=== PATIENT | male | born 1970 | race Caucasian/White ===

== ENCOUNTER 2018-01-26 11:34 | Emergency (ER) | payer OTHER, SELFPAY ==
[2018-01-26 11:35] VITALS: BP 132/75; PULSE 88; RESP 16; TEMP 36.6; O2SAT 98; BMI 29.0
--- NOTE | 2018-01-26 12:08 | CT_ITS ---
STUDY: CT ABDOMEN AND PELVIS WITH CONTRAST REASON FOR EXAM: Male, 47 years old. One-week history of right lower quadrant pain and diarrhea. RADIATION DOSAGE (If Supplied By Facility): CTDIvol = ( 13.29 ) mGy, DLP = ( 830.98 ) mGycm TECHNIQUE: Transaxial images were obtained from the dome of the diaphragm to the symphysis pubis with oral contrast. 100 ml of Isovue 300 contrast was administered. Sagittal and coronal images were reconstructed. Individualized dose optimization techniques were used for this CT. COMPARISON: None. FINDINGS: Minimal degree of increased linear markings at the lung bases suggestive of a linear atelectasis. The visualized portions of the heart are within normal limits. Normal liver. Normal gallbladder and extrahepatic biliary system. Normal spleen. Normal pancreas. Normal bilateral adrenal glands. Normal right kidney. Normal left kidney. Normal visualized stomach. There is thickening of the terminal ileum with increased markings in the surrounding peritoneal fat. Mural thickening of the right hemicolon as well as the transverse colon. This is suggestive of a inflammatory bowel disease such as Crohn's. Mild degree of the thickening of the descending colon. Several small well-defined soft tissue nodules are seen in the mesentery in the right lower quadrant suggestive of mesenteric adenitis. The appendix is unremarkable. Normal abdominal aorta. Normal inferior vena cava. Normal retroperitoneum. Normal urinary bladder. Normal abdominal wall. Normal osseous structures. CT/Abdomen/Pelvis WITH Contrast IMPRESSION: Findings in keeping with the pancolitis worse in the right hemicolon as well as thickening of the terminal ileum. Crohn's disease should be ruled out. Electronically Signed: Bakari Yost MD at 15:19 EDT Tel [phone], Service support ,
[2018-01-26 12:21] LABS: Bacteria 0 SEEN /hpf (None Seen); Red Blood Cells-Urine 0 SEEN /hpf (0-5); Squamous Epithelial Cells - UA 0 SEEN /hpf (0-5); White Blood Cells 0 SEEN /hpf (0-5)
[2018-01-26 12:33] LABS: Absolute Lymphocyte Count 1.92 X10^3/ul (0.83-4.51); Absolute Neutrophil Count 3.1 X10^3/uL (2.0-7.7); Basophil# 0.04 X10^3/uL; Basophil% 0.7 % (0-1); Differential Indicated SCAN CRITERIA MET; Eosinophil# 0.07 X10^3/uL; Eosinophils% 1.2 % (0-5); Hematocrit 44.9 % (40-54); Hemoglobin 15.6 g/dl (13.0-16.5); Lymphocyte # 1.92 X10^3/ul (4.0); Mean Corp Hgb Conc 34.7 g/gl (32-36); Mean Corpuscular Hgb 29.3 pg (27.0-32.0); Mean Corpuscular Volume 84.4 fL (80-94); Mean Platelet Vol. 9.1 fl (6.2-12.0); Monocyte# 0.68 X10^3/uL; Monocyte% 11.7 % (0-10); Neutrophil # 3.06 X10^3/uL (2.7-7.7); Neutrophil % 52.7 % (47-70); POSITIVE COUNT NO; POSITIVE DIFFERENTIAL NO; POSITIVE MORPHOLOGY YES; Platelet Count 199 K/mm3 (150-450); RBC Distribution Width CV 12.7 % (11.6-14.6); Red Blood Count 5.32 M/mm3 (4.6-6.2); White Blood Count 5.8 K/mm3 (4.4-11.0)
[2018-01-26 12:36] LABS: Color, Urine Yellow (Yellow); Glucose, Dipstick Normal (Normal); Ketone-Dipstick Negative (Negative); Leukocyte Esterase-Dipstick Negative /ul (Negative); Nitrite-Dipstick Negative (Negative); Occult Blood-Urine Negative /ul (Negative); Protein-Dipstick 30 mg/dl (Negative); Specific Gravity, Urine 1.025 (1.002-1.030); Urine Clarity Sl. Cloudy (Clear); Urine Urobilinogen Normal (Normal)
--- NOTE | 2018-01-26 12:40 | ED.DCSUM_ITS ---
- ER Visit Summary Date of Service: 01/26/18 Chief Complaint: Abdominal pain History of Present Illness: The patient is a 47 M presenting with right lower quadrant abdominal pain. Patient states it started 1 week ago. Pain has been intermittent. He saw his primary care physician Tuesday and he started him on Bentyl. He states he had some improvement with this and then pain returned. He has had subjective fevers. He denies nausea or vomiting. He has had diarrhea. Denies blood in his stool. Denies other complaints. Physical Examination: Vitals are stable. Patient is afebrile. Alert no acute distress. HEENT exam is unremarkable. Neck is supple. Lungs are clear and equal bilaterally. Heart is regular rate and rhythm. Abdomen is soft right lower quadrant tenderness with no rebound or guarding : Normal, no testicular tenderness Extremities are unremarkable. Skin is warm and dry. No focal neurologic deficit. Remainder of exam is unremarkable. Emergency Department Course and Treatment: CBC, chemistries unremarkable. Urinalysis unremarkable. CT abdomen pelvis shows findings in keeping with the pancolitis worse in the right hemicolon as well as thickening of the terminal ileum. Crohn's disease should be ruled out. Patient is resting comfortably on repeat evaluation. His abdomen is soft and nontender with no rebound or guarding. He has not had any diarrhea while in the emergency department. Stool studies were ordered. Discussed with Dr. Oviedo and he will see the patient as an outpatient. He is advised return to ED for worsening complaints. Disposition: Discharged home Impression: Abdominal pain, pancolitis This note was generated with [employer] dictation software. It may contain incorrect words, spelling, and punctuation that were not noted in review of the chart prior to signing ED Disposition - Plan for ED Patient: Disposition: Home or Assisted Living Chief Complaint: Abd Pain Instructions: ED Abdominal Pain Unkn Cause Referrals: Óscar Valverde DO [Primary Care Provider] - Wilfredo Oviedo MD [STAFF PHYSICIAN] - Additional Instructions: Follow up with Dr Oviedo February 07 at 1:00pm.
[2018-01-26 12:43] LABS: Anion Gap 9 (5-15); BUN 12 mg/dL (7-18); BUN/Creat Ratio 10.3 RATIO (10-20); Chloride 104 mmol/L (98-107); Creatinine, Serum 1.16 mg/dL (0.70-1.30); EST Glomerular Filtration Rate 72 mL/min (>60); Est Glom Filt Rate - Afr Amer 87 mL/min (>60); Estimated Creatinine Clearance 75.19 ml/min; Glucose 95 mg/dL (74-106); Potassium 4.1 mmol/L (3.5-5.1); Sodium Level 142 mmol/L (136-145)
[2018-01-26 12:44] LABS: Urine Bilirubin Dipstick 1 mg/dL (Negative)
[2018-01-26 12:47] LABS: Mucous, Urine 2+ /hpf (<or=2+)
[2018-01-26 13:21] LABS: Reactive Lymphocyte 2+
[2018-01-26 16:03] VITALS: BP 129/91; PULSE 74; RESP 16; O2SAT 98
--- NOTE | 2018-01-26 16:18 | ED.DEP ---
ED Disposition - Plan for ED Patient: Chief Complaint: Abd Pain Instructions: ED Abdominal Pain Unkn Cause Referrals: Óscar Valverde DO [Primary Care Provider] - Wilfredo Oviedo MD [STAFF PHYSICIAN] - Additional Instructions: Follow up with Dr Oviedo February 07 at 1:00pm.
== END 2018-01-26 16:33 | disposition home or self-care (01) ==
PROVIDERS: Emergency Provider Emergency Medicine; Family Provider Family Medicine; PCP Family Medicine
DX: K51.00 Ulcerative (chronic) pancolitis without complications (principal); R10.31 Right lower quadrant pain; Z79.899 Other long term (current) drug therapy
CPT/HCPCS: 74177; 80048; 81001; 85025; 99283; Q9967; A4216

== ENCOUNTER → 2018-01-26 17:00 | Outpatient (CLI) | payer SELFPAY | PROVIDERS: Visit Provider Emergency Medicine | DX: K51.00 Ulcerative (chronic) pancolitis without complications (principal); R10.31 Right lower quadrant pain; Z79.899 Other long term (current) drug therapy | CPT/HCPCS: 82274; 83630; 87177; 87209; 87493; 87506 ==